=== PATIENT | male | born 1970 | race Caucasian/White ===

== ENCOUNTER → 2016-06-26 | Day surgery (SDC) | payer OTHER ==
[~2016-06-26] MED LIST: ACETAMINOPHEN PO; BACTRIM DS TABL1 TAB PO; BENTYL20 MG PO; FARXIGA5 MG PO; GLUCOPHAGE500 M1 PO; GLUCOTROL PO; IBUPROFEN800 MG PO; JANUVIA PO; LISINOPRIL10 MG PO; METFORMIN HCL1000 M1 PO; METFORMIN PO; NO MED LIST; ORUDIS75 M1 PO; PRAVACHOL20 MG PO; PROMETHAZI6.25 MG/5 PO; ZYRTEC10 M1 PO
--- NOTE | ~2016-06-26 | OR ---
Unit #: [id number] #: [id number] Patient: STEFAN WOODS [id number] [address] [address] [id number] O MR#: [id number] NAME: STEFAN WOODS ROOM: Date of Procedure: 06/26/2016 Admission Date: 06/26/2016 Surgeon: Hill Pruitt M.D. : 1970 Attending Physician: Hill Pruitt M.D. Primary Care Physician: Cecy Vo Aprn OPERATIVE REPORT PREOPERATIVE DIAGNOSIS Midabdominal pain. POSTOPERATIVE DIAGNOSIS Midabdominal pain. PROCEDURES PERFORMED 1. Esophagogastroduodenoscopy. 2. Biopsy of antrum for Helicobacter pylori testing. 3. Colonoscopy to terminal ileum. ANESTHESIA Monitored anesthesia care. FINDINGS The patient was found on upper endoscopy to have some ulcerative distal esophagitis. The patient was also found to have a normal terminal ileum and normal colon. SPECIMENS Sent to pathology. COMPLICATIONS None apparent. CONDITION The patient tolerated the procedure well. INDICATIONS FOR PROCEDURE The patient is a 45-year-old white male, who presents at this time for mid abdominal pain. He had a recent CT scan, which showed no abnormality. He presents at this time for further evaluation by upper and lower endoscopy. DESCRIPTION OF PROCEDURE After obtaining informed consent, the patient was brought to the endoscopy suite and after adequate monitored anesthesia care, had the endoscope placed through the mouth into the upper esophagus under direct vision. It was advanced to the second portion of the duodenum without difficulty with the lumen always in view. The duodenum was within normal limits as was duodenal bulb. The pylorus opened normally. There was some mild distal gastritis present and a biopsy was obtained for Helicobacter pylori testing. On retroflexion back to the GE junction, no abnormalities were Unit #: [id number] #: [id number] Patient: STEFAN WOODS found in the proximal third, middle third, or incisura. On pulling back above the GE junction, there was no stenosis, stricture, or neoplasm seen, but there was some ulcerative esophagitis present. The remaining portion of the esophagus was within normal limits. Laryngeal structures were grossly normal as viewed from above. At this point in time, the colonoscope was placed through the anus and slowly advanced to the level of the cecum without difficulty and with the lumen always in view. We were able to pass through the ileocecal valve into the terminal ileum. The terminal ileum was normal as was the ileocecal valve and cecum. The ascending colon was normal as was the hepatic flexure, transverse colon, splenic flexure, descending colon, sigmoid colon, and rectum. On retroflexing in the rectum to the anorectal junction, the patient was found to have no significant abnormality. The scope was removed without difficulty. No diverticula had been seen. On digital examination, there was good sphincter tone, no masses palpable. The patient went from the endoscopy suite to recovery area in stable condition. RECOMMENDATIONS High-fiber diet, lots of liquids, tucks or wipes p.r.n. Gastroesophageal reflux sheet given. [id number] Prilosec or Pepcid daily or as needed. Call Sunday for pathology report. Dictated by... Kate Camejo/ezra TD: 06/26/2016 21:37 JOB #: [id number] CC: [facility] OPERATIVE REPORT X Hill Pruitt MD X PROCEDURE OPERATIVE NOTE
== END | disposition home or self-care (01) ==
LOC: COPS 08:36
DX: R10.9 Unspecified abdominal pain (principal); K22.10 Ulcer of esophagus without bleeding; K29.70 Gastritis, unspecified, without bleeding; J30.9 Allergic rhinitis, unspecified; I10 Essential (primary) hypertension; E78.5 Hyperlipidemia, unspecified; E11.9 Type 2 diabetes mellitus without complications; Z79.84 Long term (current) use of oral hypoglycemic drugs; E29.1 Testicular hypofunction; F52.21 Male erectile disorder; Z79.899 Other long term (current) drug therapy
CPT/HCPCS: 82947; 87077; J2250

== ENCOUNTER 2016-11-27 06:21 | Emergency (ER) | payer OTHER ==
[~2016-11-27] VITALS: Ht 185.4 cm; Wt 105.7 kg
[~2016-11-27 06:21] MED LIST changes: -FARXIGA5 MG PO
== END 2016-11-27 07:35 | disposition home or self-care (01) ==
LOC: CFTX 06:21 → CED 06:21 → CFTX 07:33
DX: S20.362A Insect bite (nonvenomous) of left front wall of thorax, initial encounter (principal); E11.9 Type 2 diabetes mellitus without complications; W57.XXXA Bitten or stung by nonvenomous insect and other nonvenomous arthropods, initial encounter; Y92.89 Other specified places as the place of occurrence of the external cause
CPT/HCPCS: 99281

== ENCOUNTER 2016-12-25 17:42 | Emergency (ER) | payer BC, OTHER ==
[~2016-12-25] VITALS: Ht 185.4 cm; Wt 106.6 kg
--- NOTE | ~2016-12-25 | CR141 ---
[facility] A Service of [facility] RADIOLOGY TEXT RESULTS PATIENT: STEFAN WOODS LOCATION: CFTX : 72 UNIT #: [id number] AGE: [address]: Richard Cobos SEX: M ORDER DR: [id number] [facility] [address] [facility]. [place], [place] [address] [id number] E MR#: [id number] Acc #: [id number] NAME: STEFAN WOODS : 1970 SEX: M STUDY DATE/TIME: 12/25/2016 18:23 UNIT: CFTX ROOM: STUDY DESCRIPTION: CR Hand Min 3 Views Lt Attending Physician: Richard Cobos Ordering Physician: Richard Cobos Primary Care Physician: Cecy Vo Aprn MEDICAL IMAGING REPORT This report is preliminary unless electronic signature is present EXAM Left hand, 12/25/2016 HISTORY A 46-year-old male with left hand pain, vertically of the fifth finger, beginning 4 days ago. COMPARISON STUDIES None. FINDINGS Three views of the left hand demonstrates a very small calcific fragment projecting along the volar radial aspect of the fifth proximal interphalangeal joint. This measures approximately 2 mm in size. This could represent an assessed ratification center versus small avulsion injury. Correlation with point tenderness in this location recommended. No dislocation. There is an indeterminate age irregularity involving the base of the first metacarpal. This could be secondary to degenerative change or indeterminate age injury. Correlation for tenderness in this location also recommended. IMPRESSION 1. A 2 mm calcific fragment projecting along the volar radial aspect of the fifth proximal interphalangeal joint. This is nonspecific and could represent an accessory ossification center versus avulsion injury. Correlation for point tenderness in this location recommended. No dislocation. 2. Slight irregularity involving the base of the first metacarpal. This is also of uncertain clinical significance and could be secondary to degenerative change versus indeterminate age injury. Correlation for point tenderness in this location is also recommended. [facility] A Service of [facility] RADIOLOGY TEXT RESULTS PATIENT: STEFAN WOODS LOCATION: CFTX : 72 UNIT #: [id number] AGE: [address]: Richard Cobos SEX: M ORDER DR: Dictated by... Pranav Akhtar M.D. THIS IS AN ELECTRONICALLY VERIFIED REPORT Pranav Akhtar M.D. at 12/26/2016 2:25 PM Shea TD: 12/26/2016 05:50 JOB #: [id number] MEDICAL IMAGING REPORT Page 1 of 1 COPY
[2016-12-25] MEDS ORDERED: FARXIGA5 MG PO (17:45)
== END 2016-12-25 19:21 | disposition home or self-care (01) ==
LOC: CED 17:42 → CFTX 17:42
DX: S62.617A Displaced fracture of proximal phalanx of left little finger, initial encounter for closed fracture (principal); E11.9 Type 2 diabetes mellitus without complications; W22.8XXA Striking against or struck by other objects, initial encounter; Y93.67 Activity, basketball; Y92.009 Unspecified place in unspecified non-institutional (private) residence as the place of occurrence of the external cause; Y99.8 Other external cause status
CPT/HCPCS: 29130; 73130; 99283